=== PATIENT | male | born 1955 | race Caucasian/White ===

== ENCOUNTER 2018-03-17 16:08 | Inpatient (IN) | payer BC, OTHER, SELFPAY ==
--- NOTE | 2018-03-17 16:55 | PDOC.FPRHP ---
Addendum entered and electronically signed by Radha Ann DO 03/17/18 19 :58: Home medications: 1. Glipizide 10 mg qd 2. Lisinopril 10 mg qd 3. Pregabalin 150 mg TID 4. Simvastatin 40 mg qhs 5. Janumet 50-1000 mg BID 6. Tapentadol ER 100 mg BID 7. Tapentadol 50 QD Patient started on Zosyn Original Note: - History of Present Illness Chief Complaint: N/V History of Present Illness: 62 year old with PMH Type II DM that presents with sudden onset NBNB emesis since Monday. reports that he has been vomiting nearly every hour since that time. Patient following with outside wound care ([facility]) for right foot ulcer. He last saw her on Monday when symptoms first started. Patient was started on Bactrim for right foot ulcer at that time. He has been unable to tolerate anything by mouth since Monday, thus he has not been taking his medications. Patient states he is very thirsty and his throat hurts from all the vomiting. He has no other PMH. Patient denies chest pain, cough, congestion , shortness of breath, swelling. Patient was also prescribed zofran by wound care physician on Monday, but it has not been effective. Patient has not had any previous hospitalizations for DKA. ED Course: Started on insulin drip and given 4L in outside ED. - Allergies/Adverse Reactions Allergies Allergy/AdvReac Type Severity Reaction Status Date / Time No Known Drug Allergies Allergy Verified 03/17/18 16:43 - History PMHx: Type II DM PSHx: Tonsillectomy FHx: Non-contributory Social: Denies alcohol or drug use. Endorses past history of tobacco abuse, 1 PPD for 30 years; quit 10 years ago. Patient does continue to dip. - Review of Systems General: reports: weight/appetite/sleep changes, fatigue. denies: fever/chills Eyes: denies: vision changes ENT: denies: nasal congestion, rhinorrhea Respiratory: denies: cough, congestion, shortness of breath Cardiovascular: denies: chest pain, palpitation, edema Gastrointestinal: reports: nausea, vomiting. denies: diarrhea, constipation, abdominal pain, GI bleeding Genitourinary: denies: incontinence, dysuria, polyuria Skin: reports: lesions. denies: rashes Musculoskeletal: denies: pain, tenderness Neurological: reports: weakness. denies: numbness, syncope Psychological: denies: anxiety, depression - Vital signs BP: 154/94 HR: 108 RR: 19 Tmax: 97.9F Pox: 95% on RA Wt: 88.45 kg - Physical Exam -Constitutional: Appears weak and in moderate amount of distress HEENT: PERRLA, EOMI, grossly normal vision, grossly normal hearing -HEENT: Dry mucous membranes, erythematous oropharynx without exudates Neck: supple Heart: RRR, pulses present -Lungs: Rhonchi on right Abdomen: soft, non-tender, bowel sounds present Neurological: no focal deficit -Skin: Yellowing of the hands bilaterally, right DM foot ulcer on lateral aspect of foot. No purulent drainage. Surrounding erythema on right dorsal aspect of foot and ankle area. Heme/Lymphatic: no unusual bruising or bleeding FMR H&P: Results - Labs Result Diagrams: 03/17/18 16:55 FMR H&P: A/P - Problem List (1) DKA (diabetic ketoacidoses) Current Visit: Yes Status: Acute Code(s): E13.10 - OTH DIABETES MELLITUS WITH KETOACIDOSIS WITHOUT COMA (2) Type II diabetes mellitus Current Visit: Yes Status: Chronic Qualifiers: Diabetes mellitus complication status: with neurologic complications (3) Ulcer of right foot due to type 2 diabetes mellitus Current Visit: Yes Status: Acute Code(s): E11.621 - TYPE 2 DIABETES MELLITUS WITH FOOT ULCER; L97.519 - NON-PRS CHRONIC ULCER OTH PRT RIGHT FOOT W UNSP SEVERITY - Plan 62 year old with 3 day history of N/V presents from outside facility for management of DKA 1. DKA - Admit to IMCU - Type 2 DM, has never been in DKA before - Has been unable to tolerate PO d/t N/V since Monday - On glipizide and janumet at home - pH 7.25, beta hydroxybutyrate 6, Anion gap 23, HCO3 14 - Started on insulin drip at outside facility; continue insulin drip and DKA protocol - CCU electrolyte protocol - CXR negative, no acute cardiopulmonary process identified - UA negative - Patient s/p 4L NS in outside facility - Once anion gap closes and HCO3 is above 18, can transition patient off drip and to home medications; will need hyperglycemia protocol initiated at that time - Keep NPO until off insulin drip - Will xray right foot as possible cause of infection leading to DKA; blood and urine cultures pending - Consider repeat CXR in AM as patient was severely dehydrated at time of initial CXR; patient maintaining O2 sats on RA - Patient meets sepsis criteria (HR 108, WBC 20, presumed source of infection right foot ulcer) - Will order procal - Zofran for nausea; consider adding reglan or phenergan if zofran unsuccessful in controlling nausea/vomiting - BMP q4H while on insulin drip - Flu swab pending - Lipase very minimally elevated at 80 - TSH wnl 2. Sepsis possibly 2/2 right foot ulcer - Chronic right foot ulcer with overlying erythema; may be source of infection leading to DKA - Right foot xray pending to further evaluate - Procalcitonin pending - CXR neg; consider repeat in AM when patient is rehydrated - No other s/s infection at this time; continue to monitor 3. Type II DM - On glipizide and janumet at home - Continue LEXY-I, ASA, and Statin when tolerating PO 4. DM neuropathy - Continue home medications 5. Diabetic foot ulcer, Right - Possiblie source of infection - Xray of right foot pending - Procal pending - Blood cultures pending - Patient does not meet sepsis criteria at this time; we will not initiate antibiotics until further workup is complete - Patient follows closely with outside wound care and was last seen on Monday - Per , the wound is better than it has been previously; there is some overlying erythema for which the wound care physician gave him anti-fungal cream , presuming it was a fungal infection. 6. Acute kidney injury - BUN 91, Cr 3.25 on admission, GFR 24 - Patient severely dehydrated s/p 4 L NS and on fluids currently per DKA protocol - Q4h BMP while on insulin drip Disposition/LOS: Dispo: Stable. Admit to IMCU with anticipated LOS >48 hours. Radha Ann DO PGY-2 FMR H&P: Upper Level - Plan Date/Time: 03/17/18 2535 I, [], have evaluated this patient and agree with findings/plan as outlined by editing internship resident. Pertinent changes/additions are listed here. Addendum - Attending - Attending Attestation Date/Time: 03/17/18 489 I personally evaluated the patient and discussed the management with Dr. Ann. I agree with the History, Examination, Assessment and Plan documented above with any addition or exceptions noted below. The patient was transferred from [place] with DKA. The patient has a several day history of nausea and vomiting unable to keep his diabetic meds down. He has type 2 diabetes with peripheral neuropathy and a right diabetic foot ulcer that reportedly was getting smaller with outpt wound care. He was started on bactrim this past week but kept throwing it up. His wbc is elevated, beta- hydroxybutyrate was elevated. He will be placed on dka protocol. CXR shows nothing acute. Will get urine and blood cultures. WE ordered a foot xr. Read is pending but it looks like osteo of the 5th metatarsal by my read. Will begin broad spectrum antibiotics renally dosed. Pt has an acute kidney injury likely due to dehydration. He has received over 4 liters of fluid so far. Will get MRI of foot, crp.
[2018-03-17] MEDS ORDERED: HUMULIN R 100 UNITS in Sodium Chloride 0.9% 100 ML IVPB SCH ×2 (17:00→19:41)
[2018-03-17] MEDS ORDERED: NS 0.9% w/ 20 MEQ KCL 1,000 ML IV SCH (17:15)
[2018-03-17 17:32] LABS: Anion Gap 26 mmol/L (10-20); BUN (Urea Nitrogen) 73 mg/dL (8.4-25.7); Calc. Creatinine Clearance 0 mL/min (70-130); Calcium 9.7 mg/dL (7.8-10.44); Carbon Dioxide 13 mmol/L (22-29); Chloride 106 mmol/L (98-107); Estimated GFR-MDRD 25; Glucose 438 mg/dL (70-105); Potassium 3.9 mmol/L (3.5-5.1); Sodium 141 mmol/L (136-145)
[2018-03-17] MEDS ORDERED: Ondansetron PF 4 MG/2 ML Vial IVP PRN (19:41)
[2018-03-17] MEDS ORDERED: Ondansetron ODT 4 MG TAB PO PRN (19:41)
[2018-03-17] MEDS ORDERED: CCU Electrolyte Replacement 1 EACH IVPB SCH (19:41)
[2018-03-17] MEDS ORDERED: NS 0.9% w/ 20 MEQ KCL 1,000 ML IV PRN ×2 (19:41)
[2018-03-17] MEDS ORDERED: Bisacodyl 5 MG TAB PO PRN (19:41)
[2018-03-17] MEDS ORDERED: Sodium Chloride 0.9% 1,000 ML IV PRN ×4 (19:41)
[2018-03-17] MEDS ORDERED: Dextrose 5 %-0.45 % NaCl 1,000 ML IV PRN (19:41)
[2018-03-17] MEDS ORDERED: Acetaminophen 325 MG TAB PO PRN (19:41)
[2018-03-17] MEDS ORDERED: Potassium Chloride 40 MEQ in Premix Bag 1 BAG IVPB PRN (19:45)
[2018-03-17] MEDS ORDERED: Potassium Phosphate 9 MMOL in Sodium Chloride 0.9% 100 ML IVPB PRN (19:45)
[2018-03-17] MEDS ORDERED: Magnesium 2 GM/NS 0.9% 100 ML 2 GM in Premix Bag 1 BAG IVPB PRN (19:45)
[2018-03-17] MEDS ORDERED: Potassium Phosphate 15 MMOL in Sodium Chloride 0.9% 250 ML 250 ML IV PRN (19:45)
[2018-03-17] MEDS ORDERED: Potassium Chloride 20 MEQ TAB PO PRN (19:45)
[2018-03-17] MEDS ORDERED: Magnesium Oxide 400 MG TAB PO PRN ×2 (19:45)
[2018-03-17] MEDS ORDERED: Potassium Phosphate 12 MMOL in Sodium Chloride 0.9% 250 ML 250 ML IV PRN (19:45)
[2018-03-17] MEDS ORDERED: Potassium Chloride 40 MEQ in Sodium Chloride 0.9% 250 ML 250 ML IVPB PRN (19:45)
[2018-03-17] MEDS ORDERED: CCU ELECTROLYTE REPLACEMENT PROTOCOL FS PRN (19:45)
--- NOTE | 2018-03-17 20:17 | RAD ---
RIGHT FOOT THREE VIEWS: 03/17/18 HISTORY: 62-year-old male with history of right foot pain and right foot ulcer. There is a large area of bone destruction involving the distal fifth metatarsal and metatarsal head w ith some considerable periosteal reaction. As well as destruction of the fifth metatarsophalangeal olivier int and proximal portion of the proximal phalanx with bone demineralization in the mid and distal pha langes of the fifth finger with soft tissue swelling. There is a plantar ulcer. IMPRESSION: Evidence for osteomyelitis involving the distal fifth metatarsal with destruction of the metatarsal h ead, metatarsophalangeal joint, and base of the proximal phalanx with associated soft tissue swelling and plantar ulcer. Bone demineralization of the middle and distal phalanges of the fifth toe. Arthrosis and degenerative changes noted, particularly the first metatarsophalangeal joint. POS: DONOVAN
[2018-03-17 20:18] LABS: Cardiac Risk 3.2 (Less than 4.5); Cholesterol 147 mg/dl (< 200 Desired); HDL Cholesterol 46 mg/dL (>60 Neg Risk); LDL Cholesterol, Calculated 49 mg/dL; Magnesium 2.5 mg/dL (1.6-2.6); Phosphorus 3.3 mg/dL (2.3-4.7); Triglycerides 260 mg/dL (Less than 150)
[2018-03-17 20:22] LABS: Hemoglobin A1c 8.4 % (4.0-6.0)
[2018-03-17] MEDS: D5 1/2 NS w/20 mEq KCL 1,000 ML IV PRN (20:27)
[2018-03-17 20:34] LABS: Anion Gap 27 mmol/L (10-20); BUN (Urea Nitrogen) 66 mg/dL (8.4-25.7); Calc. Creatinine Clearance 38 mL/min (70-130); Calcium 9.4 mg/dL (7.8-10.44); Chloride 109 mmol/L (98-107); Estimated GFR-MDRD 28; Glucose 380 mg/dL (70-105); Potassium 4.4 mmol/L (3.5-5.1); Sodium 140 mmol/L (136-145)
[2018-03-17 20:37] LABS: Carbon Dioxide 8 mmol/L (22-29)
[2018-03-17] MEDS ORDERED: Vancomycin HCl 1.25 GM in Sodium Chloride 0.9% 250 ML 300 ML IVPB SCH (21:00)
[2018-03-17 21:21] LABS: Bilirubin Moderate (Negative); Blood, Urine Moderate (Negative); Clarity CLEAR (Clear); Glucose, Urine (Dipstick) >=1000 mg/dL (Negative); Leukocyte Negative (Negative); Nitrite Negative (Negative); Protein, Urine (Dipstick) 30 mg/dL (Neg-Trace); Specific Gravity, Urine 1.025 (1.002-1.036); Urobilinogen 0.2 mg/dL (0.2-1.0); pH, Urine 5.5 (5.0-9.0)
[2018-03-17 21:23] LABS: Bacteria/HPF None Seen HPF (None Seen); Hyaline Casts/LPF 0-3 HYALINE CAST LPF (0-3 Hyaline); RBC/HPF 0-3 HPF (0-3); Squamous Epithelial None Seen HPF (0-3); WBC/HPF None Seen HPF (0-3)
[2018-03-17] MEDS ORDERED: Ondansetron ODT 4 MG TAB PO ONE (23:36)
[2018-03-18] MEDS: Piperacillin/Tazobactam 2.25 GM in Sodium Chloride 0.9% 100 ML IVPB SCH ×4 (00:01→17:37)
[2018-03-18] MEDS: D5 1/2 NS w/20 mEq KCL 1,000 ML IV PRN (00:13)
[2018-03-18 00:32] LABS: Anion Gap 19 mmol/L (10-20); BUN (Urea Nitrogen) 61 mg/dL (8.4-25.7); Calc. Creatinine Clearance 42 mL/min (70-130); Calcium 9.6 mg/dL (7.8-10.44); Carbon Dioxide 18 mmol/L (22-29); Chloride 115 mmol/L (98-107); Estimated GFR-MDRD 31; Glucose 209 mg/dL (70-105); Potassium 3.9 mmol/L (3.5-5.1); Sodium 148 mmol/L (136-145)
[2018-03-18 04:09] LABS: Anion Gap 14 mmol/L (10-20); BUN (Urea Nitrogen) 53 mg/dL (8.4-25.7); Calc. Creatinine Clearance 49 mL/min (70-130); Calcium 9.3 mg/dL (7.8-10.44); Carbon Dioxide 22 mmol/L (22-29); Chloride 115 mmol/L (98-107); Estimated GFR-MDRD 37; Glucose 195 mg/dL (70-105); Potassium 4.2 mmol/L (3.5-5.1); Sodium 147 mmol/L (136-145)
[2018-03-18] MEDS ORDERED: Promethazine 25 MG TAB PO PRN (05:25)
[2018-03-18] MEDS ORDERED: Dextrose 50% Abboject 50 ML SYRINGE SLOW IVP PRN (05:28)
[2018-03-18] MEDS ORDERED: Dextrose 5% in Water 1,000 ML IV PRN (05:28)
[2018-03-18] MEDS ORDERED: Sodium Chloride 0.9% 1,000 ML IV SCH (05:30)
[2018-03-18] MEDS ORDERED: Insulin Glargine 15 UNITS in Pre-Filled Syringe SC SCH (05:30)
--- NOTE | 2018-03-18 06:48 | PDOC.FM ---
- Subjective Subjective: Denies nausea/vomiting today. Endorses mild pain to right foot. Endorses acid reflux. States he usually takes prilosec at home. - Objective MAR Reviewed: Yes Vital Signs & Weight: Vital Signs (12 hours) Temp Pulse Resp BP Pulse Ox 03/18/18 04:15 98.9 F 95 19 152/88 H 94 L 03/17/18 23:41 98.4 F 106 H 19 169/96 H 95 03/17/18 20:00 95 03/17/18 19:17 98.6 F 112 H 18 147/81 H 95 Weight Weight 82.146 kg Result Diagrams: 03/18/18 03:43 03/18/18 03:43 Phys Exam - Physical Examination Constitutional: NAD HEENT: PERRLA, moist MMs Respiratory: no wheezing, no rales, no rhonchi, clear to auscultation bilateral Cardiovascular: RRR, no significant murmur Gastrointestinal: soft, non-tender, no distention Musculoskeletal: no edema, pulses present Neurological: non-focal Psychiatric: A&O x 3 Skin: no rash, cap refill <2 seconds Dx/Plan (1) Osteomyelitis Code(s): M86.9 - OSTEOMYELITIS, UNSPECIFIED Status: Acute (2) DKA (diabetic ketoacidoses) Code(s): E13.10 - OTH DIABETES MELLITUS WITH KETOACIDOSIS WITHOUT COMA Status : Acute (3) Ulcer of right foot due to type 2 diabetes mellitus Code(s): E11.621 - TYPE 2 DIABETES MELLITUS WITH FOOT ULCER; L97.519 - NON-PRS CHRONIC ULCER OTH PRT RIGHT FOOT W UNSP SEVERITY Status: Acute (4) Type II diabetes mellitus Status: Chronic Qualifiers: Diabetes mellitus complication status: with neurologic complications - Plan Plan: 62 year old with 3 day history of N/V presents from outside facility for management of DKA 1. DKA - On glipizide and janumet at home - pH 7.25, beta hydroxybutyrate 6, Anion gap 23, HCO3 14 - Started on insulin drip at outside facility; weaned off this morning as GAP closed and bicarb >18 - CCU electrolyte protocol - Zofran for nausea; consider adding reglan or phenergan if zofran unsuccessful in controlling nausea/vomiting - BMP qAM - started on LR @ 125 ml/hr for bayron and dehydration 2. Sepsis possibly 2/2 right foot ulcer - Chronic right foot ulcer with overlying erythema; may be source of infection leading to DKA - Right foot xray shows osteomyelitis - Procalcitonin pending - No other s/s infection at this time; continue to monito - started on vanc and zosyn renally dosed 3. Type II DM - On glipizide and janumet at home - restarted radha this am; increased statin to high intensity - will start baby aspirin 4. DM neuropathy - Continue home medications 5. Diabetic foot ulcer, Right - Possiblie source of infection - Xray of right foot shows osteo - Procal pending - Blood cultures pending - started on vanc and zosyn renally dosed - will consult surgery 6. Acute kidney injury - Prerenal - Patient severely dehydrated s/p 4 L NS - started LR @ 125 ml/hr for maintenanc Dispo: Stable. Code: Full Diet: diabetic Addendum - Attending - Attending Attestation Date/Time: 03/18/18 1220 I personally evaluated the patient and discussed the management with Dr. Olivares. I agree with the History, Examination, Assessment and Plan documented above with any addition or exceptions noted below. Pt is off insulin drip and was transitioned to basal insulin. WBC improved from 20 at outside facility to 16 today. Continue broad-spectrum IV antibiotics. Consult surgery/podiatry for the osteo in the foot. Will continue IV fluids to help with bayron and sodium.
[2018-03-18] MEDS ORDERED: Calcium Carbonate 500 MG ChewTAB PO PRN (07:58)
[2018-03-18] MEDS: Pregabalin 75 MG CAP PO SCH ×3 (08:01→20:29)
[2018-03-18] MEDS: Lisinopril 10 MG TAB PO SCH (08:02)
[2018-03-18] MEDS: Lactated Ringer's 1,000 ML IV SCH ×2 (08:03→15:16)
[2018-03-18 09:23] LABS: Band 6 % (5-11); Lymphocytes 4 % (21-51); MDiff Complete? YES; Mean Corpuscular HGB CONC 33.5 g/dL (32.0-36.0); Mean Corpuscular Hemoglobin 28.3 pg (27.0-31.0); Mean Corpuscular Volume 84.5 fL (78.0-98.0); Mean Platelet Volume 7.2 fL (7.4-10.4); Monocytes 16 % (0-10); Neutrophil 66 % (42-75); Platelet Count 321 thou/uL (130-400); Platelet Morphology Comment Appears Adequate; Reactive Lymphocytes 8 % (0-10); Red Blood Cell (RBC) Count 5.32 mill/uL (4.70-6.10)
[2018-03-18] MEDS: Insulin Regular 300 UNITS/3 ML VIAL SC PRN ×3 (11:37→22:08)
[2018-03-18] MEDS: Atorvastatin Calcium 40 MG TAB PO SCH (20:29)
[2018-03-18] MEDS ORDERED: Vancomycin HCl 1.25 GM in Sodium Chloride 0.9% 250 ML 250 ML IVPB SCH (21:00)
[2018-03-18] MEDS ORDERED: Acetaminophen 650 MG in Premix Bag 1 BAG IVPB PRN (21:11)
[2018-03-19] MEDS: Piperacillin/Tazobactam 2.25 GM in Sodium Chloride 0.9% 100 ML IVPB SCH ×3 (00:56→12:14)
[2018-03-19] MEDS: Lactated Ringer's 1,000 ML IV SCH ×3 (02:00→15:23)
[2018-03-19 05:30] LABS: Anion Gap 19 mmol/L (10-20); BUN (Urea Nitrogen) 35 mg/dL (8.4-25.7); Calc. Creatinine Clearance 61 mL/min (70-130); Calcium 9.6 mg/dL (7.8-10.44); Carbon Dioxide 15 mmol/L (22-29); Chloride 121 mmol/L (98-107); Estimated GFR-MDRD 47; Glucose 276 mg/dL (70-105); Potassium 4.2 mmol/L (3.5-5.1); Sodium 151 mmol/L (136-145)
[2018-03-19] MEDS: Insulin Regular 300 UNITS/3 ML VIAL SC PRN ×3 (06:20→22:21)
--- NOTE | 2018-03-19 06:51 | PDOC.FM ---
- Subjective Subjective: Pt complaining of severe thirst. He failed bedside swallow and speech eval and is currently NPO. Overnight his AG remained closed but this morning it is increasing. He denies abd pain, n/v/c/d, CP, WEEMS, vision changes. - Objective MAR Reviewed: Yes Vital Signs & Weight: Vital Signs (12 hours) Temp Pulse Resp BP Pulse Ox 03/19/18 04:35 99.3 F 89 18 146/82 H 94 L 03/19/18 00:00 99.4 F 94 20 132/63 94 L 03/18/18 20:30 100.3 F H 105 H 20 131/73 91 L Weight Weight 84.085 kg I&O: 03/17/18 03/18/18 03/19/18 06:59 06:59 06:59 Intake Total 2805 2000 Output Total 1300 2250 Balance 1505 -250 Result Diagrams: 03/18/18 03:43 03/19/18 10:28 Radiology Reviewed by me: Yes Phys Exam - Physical Examination Constitutional: NAD dry MM, erythematous oropharynx Respiratory: no wheezing, no rales, clear to auscultation bilateral Cardiovascular: RRR, no significant murmur Gastrointestinal: soft, non-tender, no distention Musculoskeletal: no edema, pulses present Neurological: non-focal, normal sensation Psychiatric: normal affect, A&O x 3 Skin: cap refill <2 seconds Deviation from normal: R foot ulcer with dressing in place Dx/Plan (1) DKA (diabetic ketoacidoses) Code(s): E13.10 - OTH DIABETES MELLITUS WITH KETOACIDOSIS WITHOUT COMA Status : Acute (2) Osteomyelitis Code(s): M86.9 - OSTEOMYELITIS, UNSPECIFIED Status: Acute (3) Ulcer of right foot due to type 2 diabetes mellitus Code(s): E11.621 - TYPE 2 DIABETES MELLITUS WITH FOOT ULCER; L97.519 - NON-PRS CHRONIC ULCER OTH PRT RIGHT FOOT W UNSP SEVERITY Status: Acute (4) Type II diabetes mellitus Status: Chronic Qualifiers: Diabetes mellitus complication status: with neurologic complications - Plan Plan: DKA - On glipizide and janumet at home, compliant, A1c 8.5 - pH 7.25, beta hydroxybutyrate 6, Anion gap 23, HCO3 14 on presentation - Started on insulin drip at outside facility; weaned off yesterday, AG increasing, today 14 with pronounced hypernatremic metabolic acidosis likely 2/ 2 NS IVF vs reoccuring DKA, BMP in 4h and increase SSI to aggressive and Lantus to 25u this am - CCU electrolyte protocol - Zofran for nausea; consider adding reglan or phenergan if zofran unsuccessful in controlling nausea/vomiting - BMP qAM - switch IVF to 1/2NS at 150 Sepsis likely 2/2 right foot ulcer and osteomyelitis - Chronic right foot ulcer with overlying erythema; likely source of infection leading to DKA - Right foot xray shows osteomyelitis - started on vanc and zosyn - consult Gen Surgery and ID - BCx NGTD Dysphagia - productive cough on exam with recent hx of sore throat - speech consulted for swallow eval - NPO until cleared Type II DM - On glipizide and janumet at home - restarted radha this am; increased statin to high intensity - will start baby aspirin DM neuropathy - Continue home medications KAIN - Prerenal - Patient severely dehydrated s/p 4 L NS and LR overnight - change IVF to 1/2NS at 150 Dispo: Stable. Code: Full Diet: NPO
[2018-03-19] MEDS ORDERED: Insulin Regular 300 UNITS/3 ML VIAL SC PRN (06:56)
[2018-03-19] MEDS ORDERED: Insulin Glargine 25 UNITS in Pre-Filled Syringe 1 EACH SC SCH (09:00)
[2018-03-19] MEDS ORDERED: Dextrose 5 %-0.45 % NaCl 1,000 ML IV SCH (10:30)
[2018-03-19 11:08] LABS: Anion Gap 21 mmol/L (10-20); BUN (Urea Nitrogen) 31 mg/dL (8.4-25.7); Calc. Creatinine Clearance 66 mL/min (70-130); Calcium 9.6 mg/dL (7.8-10.44); Carbon Dioxide 12 mmol/L (22-29); Chloride 124 mmol/L (98-107); Estimated GFR-MDRD 51; Glucose 271 mg/dL (70-105); Potassium 4.2 mmol/L (3.5-5.1); Sodium 153 mmol/L (136-145)
[2018-03-19] MEDS: Sodium Chloride 0.45% 1,000 ML IV SCH ×2 (12:16→21:25)
[2018-03-19] MEDS: Pregabalin 75 MG CAP PO SCH ×3 (12:49→22:07)
[2018-03-19] MEDS: Lisinopril 10 MG TAB PO SCH (12:49)
[2018-03-19 13:38] LABS: Anion Gap 19 mmol/L (10-20); BUN (Urea Nitrogen) 30 mg/dL (8.4-25.7); Calc. Creatinine Clearance 66 mL/min (70-130); Calcium 9.6 mg/dL (7.8-10.44); Carbon Dioxide 16 mmol/L (22-29); Chloride 123 mmol/L (98-107); Estimated GFR-MDRD 51; Glucose 272 mg/dL (70-105); Potassium 4.1 mmol/L (3.5-5.1); Sodium 154 mmol/L (136-145)
--- NOTE | 2018-03-19 14:51 | CON ---
DATE OF CONSULTATION: REASON FOR CONSULTATION: Osteomyelitis, right foot. HISTORY OF PRESENT ILLNESS: A 62-year-old patient, who has history of type 2 and now type 1 diabetes mellitus and has had chronic problems with the right foot ulcerations with waxing and waning of ulcers healing and recrudescence that have been treated with antimicrobials intermittently. Now, he developed sore throat, vomiting, was seen in emergency room and diagnosed with DKA and admitted to the [facility]. He is currently on IV insulin and IV fluids. He denies any headaches, visual symptoms, sore throat, odynophagia, or dysphagia. No cough or sputum production. No chest pain. No abdominal pain or maybe mild abdominal pain. No diarrhea. No genitourinary symptoms. Moderate pain in the right foot. PAST MEDICAL HISTORY: Type 2 diabetes, now type 1 and chronic ulcer right foot base. PAST SURGICAL HISTORY: Tonsillectomy. SOCIAL HISTORY: Former smoker. No alcoholic beverage use. FAMILY HISTORY: Noncontributory. ALLERGIES: NO KNOWN DRUG ALLERGIES. CURRENT MEDICATIONS: 1. P.r.n. medications. 2. Lipitor. 3. Dulcolax. 4. Tums. 5. Insulin. 6. Lisinopril. 7. Magnesium. 8. Ondansetron. 9. Zosyn. 10. Vancomycin. PHYSICAL EXAMINATION: VITAL SIGNS: T-max 100.3, blood pressure 150/88, pulse 95, respirations 18, and O2 saturation 93% on room air. SKIN: Remarkable for the ulcer quite small with surrounding area of hyperpigmentation and scab formation and erythema further around the ulcerated area encompassing the fifth MPJ, right foot skin site. HEENT: No lymphadenopathy. Ocular movements conjugate. Oral cavity is not remarkable. He does have a few teeth in place with quite a bit of decay. NECK: Supple. No jugular venous distention. LUNGS: Symmetric clear breath sounds. HEART: S1 and S2. Regular rate without murmurs. No S3 or S4. ABDOMEN: Soft, not distended or tender. No ascites. No bladder distention. EXTREMITIES: No joint inflammatory activity. Pulses 1+ in dorsalis pedis. Cap refill is normal. NEUROLOGIC: Nonfocal. LABORATORY DATA: White cell count 16,000, hemoglobin 15, platelets 321. Sodium 153, creatinine 1.41, and liver profile was not done. CRP 12.05. X-ray showed extensive osteomyelitis with septic arthritis, destruction of the joint, right side fifth MPJ site. ASSESSMENT: Type 2 diabetes, now type 1 with destruction of the right fifth metatarsal joint and bone due to osteomyelitis associated with chronic ulceration. The patient will need amputation of the ray and we will consult Surgery of Podiatry for that. Continue antimicrobial therapy until cultures are available. If margin of amputation is clear, may be able to switch to oral antimicrobial therapy according to culture results for discharge planning, otherwise may need to continue iv antimicrobials for a longer duration. Continue monitoring blood cultures at this time. No distant sites of involvement are noted. Job ID: [id number] [facility]
[2018-03-19] MEDS ORDERED: diphenhydrAMINE 50 MG/ML VIAL IVP PRN (19:23)
--- NOTE | 2018-03-19 20:11 | RAD ---
CHEST TWO VIEWS: HISTORY: Hematemesis. FINDINGS: The cardiac silhouette and pulmonary vasculature are unremarkable. Shallow inspiration accentuates p ulmonary markings. Mediastinum is midline. No confluent air space consolidation, pneumothorax, or p leural fluid. engine monitor leads overly the chest. IMPRESSION: No active cardiopulmonary abnormalities are demonstrated. POS: BST
[2018-03-19 20:13] LABS: #Basophils 0.1 thou/uL (0.0-0.2); #Lymphocytes 1.5 thou/uL (1.20-3.40); #Monocytes 1.5 thou/uL (0.11-0.59); #Neutrophils 11.2 thou/uL (1.40-6.50); %Basophils 0.4 % (0.0-1.0); %Eosinophils 0.1 % (0.0-10.0); %Lymphocytes 10.8 % (21.0-51.0); %Monocytes 10.2 % (0.0-10.0); %Neutrophils 78.5 % (42.0-75.0); Hemoglobin 13.5 g/dL (14.0-18.0); Mean Corpuscular HGB CONC 32.3 g/dL (32.0-36.0); Mean Corpuscular Hemoglobin 28.3 pg (27.0-31.0); Mean Corpuscular Volume 87.5 fL (78.0-98.0); Platelet Count 288 thou/uL (130-400); RBC Distribution Width 13.1 % (11.5-14.5); Red Blood Cell (RBC) Count 4.79 mill/uL (4.70-6.10); White Blood Cell (WBC) Count 14.2 thou/uL (4.8-10.8)
[2018-03-19 20:35] LABS: Anion Gap 23 mmol/L (10-20); BUN (Urea Nitrogen) 30 mg/dL (8.4-25.7); Calc. Creatinine Clearance 63 mL/min (70-130); Calcium 9.8 mg/dL (7.8-10.44); Carbon Dioxide 13 mmol/L (22-29); Chloride 121 mmol/L (98-107); Estimated GFR-MDRD 48; Glucose 299 mg/dL (70-105); Potassium 4.3 mmol/L (3.5-5.1); Sodium 153 mmol/L (136-145)
[2018-03-19] MEDS ORDERED: Vancomycin HCl 1 GM in Premix Bag 1 BAG IVPB SCH (21:15)
[2018-03-19] MEDS: diphenhydrAMINE 50 MG/ML VIAL IVP PRN (21:17)
[2018-03-19] MEDS: Atorvastatin Calcium 40 MG TAB PO SCH (22:07)
[2018-03-20 00:34] LABS: Anion Gap 19 mmol/L (10-20); BUN (Urea Nitrogen) 32 mg/dL (8.4-25.7); Calc. Creatinine Clearance 65 mL/min (70-130); Calcium 9.5 mg/dL (7.8-10.44); Carbon Dioxide 14 mmol/L (22-29); Chloride 122 mmol/L (98-107); Estimated GFR-MDRD 50; Glucose 297 mg/dL (70-105); Potassium 3.9 mmol/L (3.5-5.1); Sodium 151 mmol/L (136-145)
[2018-03-20] MEDS: metroNIDAZOLE 500 MG in Premix Bag 1 BAG IVPB SCH ×2 (00:43→07:11)
--- NOTE | 2018-03-20 01:42 | HP ---
HISTORY OF PRESENT ILLNESS: Jonah Salazar is a 62-year-old male from [place], who has been seeing a wound care physician in [place] for right foot diabetic ulcer. The patient is admitted on this occasion with DKA and noting to have a diabetic foot ulcer with communication to the bone. He has type 2 diabetes mellitus. I have been asked to see him regarding his foot wound. The patient clearly has not been taking his medication, has been very thirsty and sick for several days. On admission, his white count was 16, hemoglobin 15. Glucose on admission was 386. Hemoglobin A1c 8.4. CO2 was 8 on admission and is 16 currently. X-rays of his right foot reveal osteomyelitis of his right fifth toe with gas in the open wound. Probing wound reveals communication with the bone. Findings of osteomyelitis with MTP head eaten away. ALLERGIES: NONE. SOCIAL HISTORY: Tobacco, none. Alcohol, none. MEDICATIONS: He has not been taking his medications at home but at home, he is usually on: 1. Nucynta 50 mg t.i.d. 2. Janumet b.i.d. 3. Nucynta ER 100 mg daily. 4. Farxiga 10 mg in a.m. 5. Zocor 40 mg at bedtime. 6. Lyrica 150 mg t.i.d. 7. Glipizide 10 mg b.i.d. 8. Lisinopril 10 mg a day. PAST MEDICAL HISTORY: Diabetes mellitus, hypertension. PAST SURGICAL HISTORY: Tonsillectomy. Past history of tobacco abuse, cessation 10 years ago. PHYSICAL EXAMINATION: VITAL SIGNS: 6 foot, 185 pounds, 25 BMI, 99.4, 158/88, 18. HEAD, EARS, EYES, NOSE, AND THROAT: Unremarkable. LUNGS: Clear to auscultation. CARDIAC: Regular rate and rhythm without murmur or gallop. ABDOMEN: Soft and nontender. Palpable femoral, popliteal, dorsalis pedis, posterior tibial pulses. EXTREMITIES: Right foot lateral fifth metatarsal is an open wound that communicates to the bone on probing. There is cellulitis of the foot. LABORATORY DATA: BUN 30. Creatinine 1.41, improved from admission where his creatinine was 2.63. Hemoglobin 16 on admission, 03/18, not checked since. ASSESSMENT AND PLAN: 1. Diabetic ketoacidosis, treatment per Family Practice. 2. Diabetic foot infection, right. We would recommend methicillin-resistant Staphylococcus aureus and gram-negative coverage. Currently on vancomycin, but did experience a rash, which has been evaluated. He is also on Zosyn. If his vancomycin is discontinued, we could change him to Invanz. 3. Acute kidney injury. 4. Diabetic foot infection. Would recommend amputation of right fifth toe and metatarsal. Would arrange wound VAC care. Outpatient wound care can be provided by his wound care doctor in [place], who is close to his home. Job ID: [id number]
[2018-03-20] MEDS: Piperacillin/Tazobactam 2.25 GM in Sodium Chloride 0.9% 100 ML IVPB SCH (03:31)
[2018-03-20 05:50] LABS: Anion Gap 16 mmol/L (10-20); BUN (Urea Nitrogen) 29 mg/dL (8.4-25.7); Calc. Creatinine Clearance 73 mL/min (70-130); Calcium 9.5 mg/dL (7.8-10.44); Carbon Dioxide 18 mmol/L (22-29); Chloride 122 mmol/L (98-107); Estimated GFR-MDRD 57; Glucose 181 mg/dL (70-105); Potassium 3.8 mmol/L (3.5-5.1); Sodium 152 mmol/L (136-145)
[2018-03-20] MEDS: diphenhydrAMINE 50 MG/ML VIAL IVP PRN (05:58)
[2018-03-20] MEDS: Sodium Chloride 0.45% 1,000 ML IV SCH ×3 (05:58→20:46)
[2018-03-20] MEDS ORDERED: MEROPENEM 1 GM/50 ML 1 GM in Premix Bag 1 BAG IVPB SCH (06:45)
[2018-03-20] MEDS ORDERED: Promethazine HCl 25 MG/ML VIAL IM/IV PRN (06:53)
--- NOTE | 2018-03-20 06:53 | PDOC.FM ---
- Subjective Subjective: Pt is doing better this morning but still complains of thirst and dry mouth. Had one episode of hemoptysis overnight and complained of rash on abdomen. Night team dc'd jarvis and zosyn at that time and rash is improved. He has not had any other episodes of hemoptysis or vomiting since that one episode. He denies abd pain, n/v/c/d, WEEMS this AM. - Objective MAR Reviewed: Yes Vital Signs & Weight: Vital Signs (12 hours) Temp Pulse Resp BP Pulse Ox 03/20/18 04:00 99.3 F 93 20 150/74 H 95 03/20/18 02:28 97 03/20/18 00:00 99.2 F 94 18 147/90 H 97 03/19/18 19:52 99.2 F 94 18 137/66 98 Weight Admit Weight 82.146 kg Weight 84.085 kg I&O: 03/18/18 03/19/18 03/20/18 06:59 06:59 06:59 Intake Total 2805 2000 Output Total 1300 2250 Balance 1505 -250 Result Diagrams: 03/20/18 07:28 03/20/18 04:52 Phys Exam - Physical Examination Constitutional: NAD dry MM, improved from yesterday Respiratory: no wheezing, no rales, clear to auscultation bilateral Cardiovascular: RRR, no significant murmur Gastrointestinal: soft, non-tender Musculoskeletal: no edema, pulses present Neurological: non-focal, normal sensation, moves all 4 limbs Psychiatric: normal affect, A&O x 3 Dx/Plan (1) DKA (diabetic ketoacidoses) Code(s): E13.10 - OTH DIABETES MELLITUS WITH KETOACIDOSIS WITHOUT COMA Status : Acute (2) Osteomyelitis Code(s): M86.9 - OSTEOMYELITIS, UNSPECIFIED Status: Acute (3) Ulcer of right foot due to type 2 diabetes mellitus Code(s): E11.621 - TYPE 2 DIABETES MELLITUS WITH FOOT ULCER; L97.519 - NON-PRS CHRONIC ULCER OTH PRT RIGHT FOOT W UNSP SEVERITY Status: Acute (4) Type II diabetes mellitus Status: Chronic Qualifiers: Diabetes mellitus complication status: with neurologic complications - Plan Plan: DKA - On glipizide and janumet at home, compliant, A1c 8.5 - pH 7.25, beta hydroxybutyrate 6, Anion gap 23, HCO3 14 on presentation - Started on insulin drip at outside facility; weaned off yesterday, AG closed with pronounced hypernatremic metabolic acidosis likely 2/2 NS IVF, continue SSI to aggressive and Lantus to 30u this am - CCU electrolyte protocol - BMP in AM - continue IVF to 1/2NS at 150 Sepsis likely 2/2 right diabetic foot ulcer and osteomyelitis - Chronic right foot ulcer with overlying erythema; likely source of infection leading to DKA - Right foot xray shows osteomyelitis - Vanc and zosyn dc'd as below, merem and cipro currently, await bone cx - consult Gen Surgery and ID, appreciate recs - plans for surgical amputation of fifth digit and metatarsal by Dr. Major - BCx NGTD Hemoptysis - belkis sanchez vs stomach ulcer - IV protonix BID, give IV phenergan Rash - developed overnight, discontinued Vanc and Zosyn - today switched to merem and cipro for double pseudomonos coverage, G+, and anaerobic coverage, await bone cx Dysphagia - productive cough on exam with recent hx of sore throat - speech consulted for swallow eval, failed yesterday- okay for ice chips per speech but continues to have difficulty overnight. - NPO for surgery today. Type II DM - On glipizide and janumet at home - restarted radha this am; increased statin to high intensity - will start baby aspirin DM neuropathy - Continue home medications KAIN - Prerenal, improving - Patient severely dehydrated s/p 4 L NS and LR over one night - continue IVF to 1/2NS at 150 Dispo: Stable. Code: Full Diet: NPO
[2018-03-20 07:42] LABS: #Eosinphils 0.1 thou/uL (0.0-0.7); #Lymphocytes 1.6 thou/uL (1.20-3.40); #Monocytes 1.4 thou/uL (0.11-0.59); #Neutrophils 10.1 thou/uL (1.40-6.50); %Eosinophils 0.4 % (0.0-10.0); %Lymphocytes 12.4 % (21.0-51.0); %Monocytes 10.3 % (0.0-10.0); %Neutrophils 76.8 % (42.0-75.0); Hemoglobin 12.5 g/dL (14.0-18.0); Mean Corpuscular HGB CONC 31.8 g/dL (32.0-36.0); Mean Corpuscular Hemoglobin 27.6 pg (27.0-31.0); Mean Corpuscular Volume 86.8 fL (78.0-98.0); Mean Platelet Volume 6.9 fL (7.4-10.4); Platelet Count 263 thou/uL (130-400); RBC Distribution Width 13.1 % (11.5-14.5); Red Blood Cell (RBC) Count 4.52 mill/uL (4.70-6.10); White Blood Cell (WBC) Count 13.1 thou/uL (4.8-10.8)
[2018-03-20 07:47] LABS: INR-International Normal Ratio 1.1; PTT 33.6 SEC (22.9-36.1); Prothrombin Time 14.6 SEC (12.0-14.7)
[2018-03-20] MEDS: Pantoprazole 40 MG VIAL IVP SCH ×2 (07:55→20:46)
[2018-03-20] MEDS: Lisinopril 10 MG TAB PO SCH (07:56)
[2018-03-20] MEDS: Pregabalin 75 MG CAP PO SCH ×3 (07:56→20:48)
[2018-03-20] MEDS ORDERED: Vancomycin HCl 1 GM in Premix Bag 1 BAG IVPB SCH (09:00)
[2018-03-20] MEDS ORDERED: Insulin Glargine 30 UNITS in Pre-Filled Syringe 1 EACH SC SCH (09:00)
--- NOTE | 2018-03-20 09:19 | PRG ---
DATE OF SERVICE: 03/19/2018 ADDENDUM: This is an addendum to the note of Dr. Jackie Machuca. Mr. Salazar is a 62-year-old man who was admitted in DKA likely secondary to a right 5th metatarsal osteomyelitis. This has resolved, but he now demonstrates evidence of hyperchloremic metabolic acidosis. I would suggest switching him to have normal saline to reduce his chloride load and to reduce his sodium gradually over the next day or two. We will also consult Dr. Bah regarding his likely osteomyelitis of his right 5th metatarsal. We have restarted broad-spectrum antibiotics. Job ID: [id number]
[2018-03-20] MEDS ORDERED: Midazolam HCl 2 mg/2 ml Vial ONE (10:38)
[2018-03-20] MEDS ORDERED: Fentanyl 100 MCG/2 ML VIAL ONE (10:38)
[2018-03-20] MEDS ORDERED: HYDROmorphone 2 MG/ML VIAL ONE (11:20)
[2018-03-20] MEDS ORDERED: KETAMINE 100 MG/ML (5ML VIAL) ONE (11:20)
--- NOTE | 2018-03-20 12:11 | PRG ---
DATE OF SERVICE: 03/20/2018 ADDENDUM: This is an addendum to the note of Dr. Jackie Machuca. Mr. Salazar slipped back into mild DKA yesterday. He also has hyperchloremic metabolic acidosis and we are adjusting his IV fluids to manage these issues. He has been seen by the Surgery Service and will be taken later today for a toe amputation. He allegedly developed a rash with vancomycin, although, it is not particularly itchy and was not associated with any changes in blood pressure or wheezing. We may later switch to meropenem to continue MRSA coverage. We will continue to follow with Dr. Bah and the Surgical Service. Job ID: [id number]
[2018-03-20] MEDS ORDERED: SUGAMMADEX SODIUM 200 MG/2 ML VIAL ONE (12:36)
[2018-03-20] MEDS ORDERED: SUGAMMADEX SODIUM 500 MG/5 ML VIAL ONE (12:36)
[2018-03-20] MEDS ORDERED: Acetaminophen 500 MG TAB PO PRN (12:45)
[2018-03-20] MEDS ORDERED: traMADol HCl 50 MG TAB PO PRN ×2 (12:45)
[2018-03-20] MEDS: MEROPENEM 1 GM/50 ML 1 GM in Premix Bag 1 BAG IVPB SCH ×2 (13:39→22:54)
[2018-03-20] MEDS: Insulin Regular 300 UNITS/3 ML VIAL SC PRN ×2 (13:40→16:30)
[2018-03-20] MEDS ORDERED: Lidocaine 1% PF 5 ML VIAL ONE (13:48)
[2018-03-20] MEDS ORDERED: Glycopyrrolate 0.2 MG/ML 5 ML SYRINGE ONE (13:48)
[2018-03-20] MEDS ORDERED: Rocuronium Bromide 10 MG/ML (10ML VIAL) ONE (13:48)
[2018-03-20] MEDS ORDERED: PROPOFOL 200 MG/20 ML VIAL ONE (13:48)
[2018-03-20] MEDS ORDERED: Ondansetron PF 4 MG/2 ML Vial ONE (13:48)
[2018-03-20] MEDS ORDERED: PHENYLEPHRINE-NS 100 MCG/ML 10 ML SYRINGE ONE (13:48)
[2018-03-20] MEDS ORDERED: Metoclopramide HCl 10 MG/2 ML VIAL ONE (13:48)
[2018-03-20 19:07] LABS: Anion Gap 13 mmol/L (10-20); BUN (Urea Nitrogen) 27 mg/dL (8.4-25.7); Calc. Creatinine Clearance 77 mL/min (70-130); Carbon Dioxide 22 mmol/L (22-29); Chloride 122 mmol/L (98-107); Estimated GFR-MDRD 61; Glucose 175 mg/dL (70-105); Potassium 3.7 mmol/L (3.5-5.1); Sodium 153 mmol/L (136-145)
[2018-03-20] MEDS: Atorvastatin Calcium 40 MG TAB PO SCH (20:48)
--- NOTE | 2018-03-20 21:06 | OP ---
DATE OF PROCEDURE: 03/20/2018 PREOPERATIVE DIAGNOSES: Diabetic infection, right foot with osteomyelitis, right fifth toe and metatarsal with open neuropathic ulceration, right lateral foot. PROCEDURE PERFORMED: Amputation of right fifth toe and metatarsal with wound VAC application. Note, good blood supply. No evidence of peripheral artery disease or postop bleeding. Culture and sensitivity submitted to Micro. ANESTHESIA: General. Note, Wound Care Team arrived to place a wound VAC at the end of procedure. DESCRIPTION OF PROCEDURE: The patient was taken to the operating room, where under general anesthesia, right lower extremity was prepared with Betadine and draped in routine fashion. The patient had an ulceration in the right lateral foot extending down the metatarsophalangeal joint into the metatarsal with destruction of the head of the metatarsal. An incision was made, racquet, for excision of the right fifth toe and metatarsal sparing as much skin as possible while resecting the ulceration. Incision was carried down through skin and subcutaneous tissue of the metatarsal, which was transected with a bone cutter and resected proximally with a rongeur to healthy bone. Good hemostasis was obtained with cautery. Pulsatile digital vessel bleeding noted. Connective tissue was debrided sharply. Cultures had been submitted. Wound Care Team arrived. Once the wound was irrigated, Wound Care Team placed a wound VAC. The patient tolerated the procedure well. Job ID: [id number]
[2018-03-21] MEDS: Sodium Chloride 0.45% 1,000 ML IV SCH ×2 (04:41→14:17)
[2018-03-21 05:12] LABS: Anion Gap 13 mmol/L (10-20); BUN (Urea Nitrogen) 21 mg/dL (8.4-25.7); Calc. Creatinine Clearance 107 mL/min (70-130); Calcium 8.4 mg/dL (7.8-10.44); Carbon Dioxide 21 mmol/L (22-29); Chloride 115 mmol/L (98-107); Estimated GFR-MDRD 90; Glucose 154 mg/dL (70-105); Potassium 3.1 mmol/L (3.5-5.1); Sodium 146 mmol/L (136-145)
[2018-03-21] MEDS: MEROPENEM 1 GM/50 ML 1 GM in Premix Bag 1 BAG IVPB SCH ×3 (06:06→22:17)
--- NOTE | 2018-03-21 07:04 | PDOC.FM ---
- Subjective Subjective: Patient doing better this AM. Overnight, patient non-compliant with NPO status and was drinking water. He has a swallow study scheduled for this AM. If he passes swallow study, then he can be changed to Diabetic diet. Patient states his throat is very dry, but it no longer hurts like it used to. He denies chest pain, shortness of breath, N/V, or palpitations. - Objective MAR Reviewed: Yes Vital Signs & Weight: Vital Signs (12 hours) Temp Pulse Resp BP Pulse Ox 03/21/18 04:00 99.2 F 83 18 123/60 95 03/20/18 23:50 99.5 F 80 18 143/89 H 94 L 03/20/18 19:54 99.3 F 87 20 147/72 H 92 L Weight Admit Weight 82.146 kg Weight 87.118 kg I&O: 03/20/18 03/21/18 03/22/18 06:59 06:59 06:59 Intake Total 3740 Output Total 1225 Balance 2515 Result Diagrams: 03/20/18 07:28 03/21/18 04:23 EKG Reviewed by me: Yes Radiology Reviewed by me: Yes Phys Exam - Physical Examination Constitutional: NAD Dry mucous membranes Respiratory: clear to auscultation bilateral Cardiovascular: RRR, no significant murmur Gastrointestinal: soft, non-tender, no distention, positive bowel sounds Musculoskeletal: no edema, pulses present Neurological: non-focal Psychiatric: A&O x 3 Deviation from normal: Right foot with wound vac and LEXY bandage Dx/Plan (1) DKA (diabetic ketoacidoses) Code(s): E13.10 - OTH DIABETES MELLITUS WITH KETOACIDOSIS WITHOUT COMA Status : Acute (2) Type II diabetes mellitus Status: Chronic Qualifiers: Diabetes mellitus complication status: with neurologic complications (3) Ulcer of right foot due to type 2 diabetes mellitus Code(s): E11.621 - TYPE 2 DIABETES MELLITUS WITH FOOT ULCER; L97.519 - NON-PRS CHRONIC ULCER OTH PRT RIGHT FOOT W UNSP SEVERITY Status: Acute - Plan Plan: DKA, resolved - On glipizide and janumet at home, compliant per patient, A1c 8.5 - pH 7.25, beta hydroxybutyrate 6, Anion gap 23, HCO3 14 on presentation - Weaned off insulin drip and transitioned to lantus - CCU electrolyte protocol; potassium replaced this AM - BMP in PM; monitor hypernatremic metabolic acidosis and electrolyte abnormalities - continue IVF to 1/2NS at 150; hyperchloremic metabolic acidosis improving - source likely 2/2 osteomyelitis of 5th digit on right foot Sepsis likely 2/2 right diabetic foot ulcer and osteomyelitis - Chronic right foot ulcer with overlying erythema; likely source of infection leading to DKA - Right foot xray shows osteomyelitis - Vanc and zosyn dc'd as below, merem started yesterday (03/20), await bone cx - consulted Gen Surgery and ID, appreciate recs - amputation of left 5th digit on right foot yesterday; no PVD identified - BCx NGTD Hemoptysis - belkis sanchez vs stomach ulcer - IV protonix BID, give IV phenergan - no epigastric pain Rash - developed overnight, discontinued Vanc and Zosyn - today switched to merem and cipro for double pseudomonos coverage, G+, and anaerobic coverage, await bone cx Dysphagia - productive cough on exam with recent hx of sore throat - speech consulted for swallow eval, patient has failed swallow test; recommend barium swallow - patient has speech therapy/barium swallow scheduled for this AM Type II DM - On glipizide and janumet at home; transitioning to insulin during hospitalization, will continue to titrate - continue LEXY-I and high intensity statin - started on baby ASA DM neuropathy - Continue home medications KAIN - Prerenal, improving - continue IVF to 1/2NS at 150 Dispo: Stable. Code: Full Diet: NPO until barium swallow study Dispo: Stable. Transfer to medical floor today. Patient awaiting barium swallow test per recs of speech therapy. Continue to titrate insulin.
[2018-03-21] MEDS ORDERED: Potassium Chloride 40 MEQ in Sodium Chloride 0.9% 500 ML IVPB ONE (07:15)
[2018-03-21] MEDS ORDERED: Insulin Glargine 35 UNITS in Pre-Filled Syringe 1 EACH SC SCH (07:20)
[2018-03-21] MEDS: Pantoprazole 40 MG VIAL IVP SCH ×2 (09:00→22:17)
[2018-03-21] MEDS: Pregabalin 75 MG CAP PO SCH ×3 (09:02→22:15)
[2018-03-21] MEDS: Lisinopril 10 MG TAB PO SCH (09:02)
[2018-03-21] MEDS: Polyethylene Glycol 3350 17 GM Packet PO SCH (09:02)
[2018-03-21 12:08] VITALS: BMI 26.0
--- NOTE | 2018-03-21 15:34 | RAD ---
MODIFIED BARIUM SWALLOW: 03/21/18 HISTORY: Evaluate for aspiration. Determine least restrictive diet. Dysphagia, oropharyngeal phase. Feeding di fficulties. EXPOSURE: 1.5 minutes. 1.359 Gy*cm2. FINDINGS: In the presence of speech pathologist, the patient administered thin liquid, nectar thick, pudding, a nd solid consistencies. There is premature spillage and pooling in the vallecula and piriform sinuses in all the aforementioned consistencies. There is penetration and aspiration with thin liquid consi stency. There is some aspiration and penetration of residue when administering the nectar thick consi stency. Please refer to speech pathologist report for feeding recommendations. IMPRESSION: Please refer to speech pathologist report for feeding recommendation. POS: DONOVAN
[2018-03-21] MEDS: diphenhydrAMINE 25 MG CAP PO PRN (22:14)
[2018-03-21] MEDS: Atorvastatin Calcium 40 MG TAB PO SCH (22:15)
[2018-03-22] MEDS: MEROPENEM 1 GM/50 ML 1 GM in Premix Bag 1 BAG IVPB SCH (05:35)
[2018-03-22 06:42] LABS: Anion Gap 14 mmol/L (10-20); BUN (Urea Nitrogen) 15 mg/dL (8.4-25.7); Calc. Creatinine Clearance 113 mL/min (70-130); Calcium 8.3 mg/dL (7.8-10.44); Carbon Dioxide 20 mmol/L (22-29); Chloride 113 mmol/L (98-107); Estimated GFR-MDRD Greater than 90; Glucose 167 mg/dL (70-105); Potassium 3.5 mmol/L (3.5-5.1); Sodium 143 mmol/L (136-145)
[2018-03-22] MEDS: Insulin Regular 300 UNITS/3 ML VIAL SC PRN (06:44)
[2018-03-22] MEDS: Polyethylene Glycol 3350 17 GM Packet PO SCH (08:44)
[2018-03-22] MEDS: Pregabalin 75 MG CAP PO SCH ×3 (08:44→21:08)
[2018-03-22] MEDS: Pantoprazole 40 MG VIAL IVP SCH ×2 (08:44→21:06)
[2018-03-22] MEDS: Lisinopril 10 MG TAB PO SCH (08:44)
[2018-03-22] MEDS: HumaLOG 300 UNITS/3 ML VIAL SC SCH ×3 (08:45→16:08)
[2018-03-22] MEDS: diphenhydrAMINE 25 MG CAP PO PRN (08:48)
--- NOTE | 2018-03-22 08:55 | HP ---
ADDENDUM: This is an addendum to the note of Dr. Radha Ann. Mr. davidson continues to look and feel much better. He is alert and oriented, only complaining of thirst. We are awaiting results of swallow tests, at which time, we hope we can begin to feed him. His metabolic abnormalities have vastly improved and he no longer demonstrates metabolic acidosis secondary to either DKA or hyperchloremic metabolic acidosis. He is on aggressive sliding scale for his still elevated blood glucose levels. He will need to be sent home on insulin in addition to his three oral diabetic medications. We feel he is likely ready for transfer to a regular floor bed. Job ID: [id number]
[2018-03-22] MEDS: Insulin Glargine 18 UNITS in Pre-Filled Syringe 1 EACH SC SCH (09:33)
--- NOTE | 2018-03-22 09:52 | PRG ---
DATE OF SERVICE: 03/22/2018 SUBJECTIVE: Mr. Salazar is doing well today. His right foot is granulating, looks good. Wound VAC is changed. There is no cellulitis, no signs of infection. Cultures, blood are negative. Wound cultures, Gram-positive cocci in pairs and clusters. Final results pending. ASSESSMENT AND PLAN: The patient's foot is doing well. I will see him as needed this hospitalization. The patient will be discharged home on oral antibiotics for 10 days whenever outpatient wound VAC is approved. He can follow up in [place] for his wound VAC. He can return to my office as needed. The patient should continue oral antibiotics for 10 days. The infected tissue is resected, and there is no evidence of residual infection and no evidence of residual osteomyelitis. Job ID: [id number]
--- NOTE | 2018-03-22 11:49 | PDOC.FM ---
- Subjective Subjective: Patient doing very well this AM. No significant overnight events. Patient tolerating PO, although it is still painful to swallow. He did not pass his swallow test entirely and has been on pureed diet since yesterday. He states that he feels like his stomach has shrunk and he just isn't as hungry. He does report being very thirsty. He denies any pain currently. - Objective MAR Reviewed: Yes Vital Signs & Weight: Vital Signs (12 hours) Temp Pulse Resp BP BP Pulse Ox 03/22/18 11:00 99.0 F 65 18 144/78 H 95 03/22/18 08:44 151/81 H 03/22/18 08:00 98.2 F 67 18 151/81 H 95 03/22/18 07:00 98.3 F 68 18 145/74 H 97 03/22/18 06:03 98.4 F 67 21 H 136/67 99 03/22/18 02:19 98.4 F 73 18 136/67 95 Weight Admit Weight 82.146 kg Weight 87.118 kg I&O: 03/21/18 03/22/18 03/23/18 06:59 06:59 06:59 Intake Total 3740 1500 Output Total 1225 1400 1000 Balance 2515 100 -1000 Result Diagrams: 03/20/18 07:28 03/22/18 06:07 EKG Reviewed by me: Yes Radiology Reviewed by me: Yes Phys Exam - Physical Examination Constitutional: NAD HEENT: moist MMs Neck: supple Respiratory: clear to auscultation bilateral Cardiovascular: RRR, no significant murmur Gastrointestinal: soft, non-tender, no distention, positive bowel sounds Musculoskeletal: no edema, pulses present Neurological: non-focal Psychiatric: normal affect, A&O x 3 Skin: cap refill <2 seconds Deviation from normal: Rash on back; maculopapular. Right foot in bandage with woud vac. Dx/Plan (1) DKA (diabetic ketoacidoses) Code(s): E13.10 - OTH DIABETES MELLITUS WITH KETOACIDOSIS WITHOUT COMA Status : Resolved (2) Type II diabetes mellitus Status: Chronic Qualifiers: Diabetes mellitus complication status: with neurologic complications (3) Ulcer of right foot due to type 2 diabetes mellitus Code(s): E11.621 - TYPE 2 DIABETES MELLITUS WITH FOOT ULCER; L97.519 - NON-PRS CHRONIC ULCER OTH PRT RIGHT FOOT W UNSP SEVERITY Status: Chronic (4) Osteomyelitis Code(s): M86.9 - OSTEOMYELITIS, UNSPECIFIED Status: Acute Qualifiers: Osteomyelitis location: foot - Plan Plan: 62 year old male presents with N/V DKA, resolved - On glipizide and janumet at home, compliant per patient, A1c 8.5 - pH 7.25, beta hydroxybutyrate 6, Anion gap 23, HCO3 14 on presentation - Weaned off insulin drip and transitioned to lantus; changed regimen today based on .4 units/kg divided into basal and short acting insulin - IVF's d/c'd - source likely 2/2 osteomyelitis of 5th digit on right foot Sepsis 2/2 right diabetic foot ulcer and osteomyelitis - Chronic right foot ulcer with overlying erythema; likely source of infection leading to DKA - Right foot xray shows osteomyelitis - Vanc and zosyn dc'd as below, merem started yesterday (03/20), await bone cx - consulted Gen Surgery and ID, appreciate recs - s/p amputation of left 5th digit on right foot; POD #2 - BCx NGTD - Wound culture growing out staph aureus - will d/c meropenem today and transition to PO Clindamycin for which patient will need to take for 10 days per surgery recs Hemoptysis - possible esophageal tear - IV protonix BID - no epigastric pain Rash - d/c'd vanc and zosyn under presumption rash was attributed to abx. Rash still present despite being off those antibiotics - benadryl PRN Dysphagia - productive cough on exam with recent hx of sore throat - speech consulted for swallow eval, patient has failed swallow test; patient failed barium swallow. Recommend puree diet at this time with thickened liquids - ADAT per speech therapy recs Type II DM - On glipizide and janumet at home; transitioning to insulin during hospitalization, will continue to titrate - continue LEXY-I and high intensity statin - started on baby ASA DM neuropathy - Continue home medications KAIN - improved Dispo: Stable. Code: Full Diet: puree, thickened liquids Dispo: Stable. Ready for d/c home from surgery standpoint with wound vac when CM has set up home wound vac. Still evaluating patient's ability to tolerate PO and adjusting insulin.
[2018-03-22] MEDS: Clindamycin 150 MG CAP PO SCH ×2 (14:51→21:06)
--- NOTE | 2018-03-22 18:43 | PRG ---
DATE OF SERVICE: 03/22/2018 SUBJECTIVE: Mr. Salazar has been transferred to the floor. He is feeling better. Denies any headaches. No visual symptoms, sore throat, odynophagia, or dysphagia. He had amputation of the first metatarsal. He has not had any diarrhea. OBJECTIVE: VITAL SIGNS: Normal, maybe T-max is 99, blood pressure 140/70, and pulse 71. GENERAL: Awake, alert, and oriented. LUNGS: Clear. HEART: S1 and S2. Regular rate. ABDOMEN: Soft, not distended. EXTREMITIES: Right foot with dressing and negative pressure dressing is applied. LABORATORY DATA: White cell count is at 13, hemoglobin 12, platelets 263. Sodium 143 and creatinine 0.86. We have a culture, now Staph aureus with pending susceptibilities. ASSESSMENT AND DISCUSSION: Type 2 diabetes, now type 1 of diabetic ketoacidosis; destruction of right fifth metatarsal, status post ray amputation with Staphylococcus aureus retrieved from the culture. We will await for the susceptibility results and then define this discharge antimicrobial regimen. Treat for about approximately 2 weeks. Follow up wound care progress. Job ID: [id number]
--- NOTE | 2018-03-22 19:10 | PRG ---
DATE OF SERVICE: 03/22/2018 Mr. Salazar is doing fine this morning. He is in good spirits. No new complaints. His blood glucose levels were much improved. He will be transitioned to oral antibiotics for his previous osteomyelitis with followed by a ray resection. Likely, home in a day or 2 with instructions on his insulin. Job ID: [id number]
[2018-03-22] MEDS: Atorvastatin Calcium 40 MG TAB PO SCH (21:06)
--- NOTE | 2018-03-22 23:20 | PDOC.FM ---
- Subjective Subjective: Patient doing extremely well this AM. He states he feels well. His sore throat has improved, although he is still having some difficulties swallowing. He was told by speech therapy that this shouldn't hold him up from discharge, but that he would have to take it slow in the progression of his diet. He is extremely grateful for the care we have provided. - Objective MAR Reviewed: Yes Vital Signs & Weight: Vital Signs (12 hours) Temp Pulse Resp BP Pulse Ox 03/22/18 20:00 98.2 F 68 18 128/78 96 03/22/18 16:00 98.5 F 71 18 143/73 H 95 Weight Admit Weight 82.146 kg Weight 87.118 kg I&O: 03/21/18 03/22/18 03/23/18 06:59 06:59 06:59 Intake Total 3740 1500 1920 Output Total 1225 1400 1000 Balance 2515 100 920 Result Diagrams: 03/20/18 07:28 03/22/18 06:07 EKG Reviewed by me: Yes Radiology Reviewed by me: Yes Phys Exam - Physical Examination Constitutional: NAD HEENT: moist MMs Neck: supple Respiratory: clear to auscultation bilateral Cardiovascular: RRR, no significant murmur Gastrointestinal: soft, non-tender, no distention, positive bowel sounds Musculoskeletal: no edema, pulses present Neurological: non-focal Psychiatric: normal affect, A&O x 3 Skin: cap refill <2 seconds Deviation from normal: Right foot wrapped and with wound vac in place Dx/Plan (1) DKA (diabetic ketoacidoses) Code(s): E13.10 - OTH DIABETES MELLITUS WITH KETOACIDOSIS WITHOUT COMA Status : Resolved (2) Type II diabetes mellitus Status: Chronic Qualifiers: Diabetes mellitus complication status: with neurologic complications (3) Ulcer of right foot due to type 2 diabetes mellitus Code(s): E11.621 - TYPE 2 DIABETES MELLITUS WITH FOOT ULCER; L97.519 - NON-PRS CHRONIC ULCER OTH PRT RIGHT FOOT W UNSP SEVERITY Status: Chronic (4) Osteomyelitis Code(s): M86.9 - OSTEOMYELITIS, UNSPECIFIED Status: Acute Qualifiers: Osteomyelitis location: foot - Plan Plan: 62 year old male presents with N/V DKA, resolved - transitioned to SC insulin; 0.4 units/kg (17 units lantus and 6 units with each meal) - source likely 2/2 osteomyelitis of 5th digit on right foot Sepsis 2/2 right diabetic foot ulcer and osteomyelitis - Chronic right foot ulcer with overlying erythema; likely source of infection leading to DKA - consulted Gen Surgery and ID, appreciate recs - s/p amputation of left 5th digit on right foot; POD #3 - BCx NGTD - Wound culture growing out staph aureus; sensitivities resulted, will initiate treatment with Doxycycline for 14 days Hemoptysis x1, resolved - transition to PO protonix Rash - d/c'd vanc and zosyn under presumption rash was attributed to abx. Rash still present despite being off those antibiotics - benadryl PRN Dysphagia - productive cough on exam with recent hx of sore throat - speech consulted for swallow eval, patient has failed swallow test; patient failed barium swallow. Recommend puree diet at this time with thickened liquids - ADAT per speech therapy recs Type II DM - On glipizide and janumet at home; transitioning to insulin during hospitalization, will continue to titrate - continue LEXY-I and high intensity statin - started on baby ASA DM neuropathy - Continue home medications KAIN - improved Dispo: Stable. Code: Full Diet: puree, thickened liquids Dispo: Stable. Ready for d/c home from surgery standpoint with wound vac. Still evaluating patient's ability to tolerate PO.
[2018-03-23] MEDS: Clindamycin 150 MG CAP PO SCH (02:35)
[2018-03-23 07:54] LABS: #Eosinphils 0.3 thou/uL (0.0-0.7); #Lymphocytes 2.7 thou/uL (1.20-3.40); #Monocytes 1.2 thou/uL (0.11-0.59); #Neutrophils 7.8 thou/uL (1.40-6.50); %Basophils 0.3 % (0.0-1.0); %Eosinophils 2.8 % (0.0-10.0); %Lymphocytes 22.3 % (21.0-51.0); %Monocytes 10.1 % (0.0-10.0); %Neutrophils 64.6 % (42.0-75.0); Hemoglobin 12.9 g/dL (14.0-18.0); Mean Corpuscular HGB CONC 32.5 g/dL (32.0-36.0); Mean Corpuscular Hemoglobin 28.4 pg (27.0-31.0); Mean Corpuscular Volume 87.5 fL (78.0-98.0); Mean Platelet Volume 7.5 fL (7.4-10.4); Platelet Count 329 thou/uL (130-400); RBC Distribution Width 12.2 % (11.5-14.5); Red Blood Cell (RBC) Count 4.56 mill/uL (4.70-6.10); White Blood Cell (WBC) Count 12.1 thou/uL (4.8-10.8)
[2018-03-23 08:10] LABS: Anion Gap 17 mmol/L (10-20); BUN (Urea Nitrogen) 11 mg/dL (8.4-25.7); Calc. Creatinine Clearance 115 mL/min (70-130); Calcium 8.6 mg/dL (7.8-10.44); Carbon Dioxide 21 mmol/L (22-29); Chloride 107 mmol/L (98-107); Estimated GFR-MDRD Greater than 90; Glucose 170 mg/dL (70-105); Potassium 3.6 mmol/L (3.5-5.1); Sodium 141 mmol/L (136-145)
[2018-03-23] MEDS ORDERED: Sulfameth/Trimethoprim DS 800-160mg TAB PO SCH (09:00)
[2018-03-23] MEDS: HumaLOG 300 UNITS/3 ML VIAL SC SCH ×2 (09:00→12:32)
[2018-03-23] MEDS ORDERED: Doxycycline 100 MG CAP PO SCH (09:00)
[2018-03-23] MEDS: Insulin Glargine 18 UNITS in Pre-Filled Syringe 1 EACH SC SCH (09:00)
[2018-03-23] MEDS: Pregabalin 75 MG CAP PO SCH ×2 (09:05→14:31)
[2018-03-23] MEDS: Lisinopril 10 MG TAB PO SCH (09:06)
[2018-03-23] MEDS: Pantoprazole 40 MG VIAL IVP SCH (09:06)
[2018-03-23] MEDS: Polyethylene Glycol 3350 17 GM Packet PO SCH (09:07)
--- NOTE | 2018-03-23 10:14 | PRG ---
DATE OF SERVICE: 03/23/2018 SUBJECTIVE: Mr. davidson is in excellent spirits this morning. His blood glucose levels were in the 120 range. He looks and feels much better. He will be placed on two weeks of doxycycline for his foot infection, but is otherwise ready for discharge today. Job ID: [id number]
[2018-03-23 14:34] VITALS: BP 142/77; TEMP 97.6
--- NOTE | 2018-03-27 15:33 | DIS ---
DATE OF ADMISSION: 03/17/2018 DATE OF DISCHARGE: 03/23/2018 ADMITTING ATTENDING: Dr. Yoli Guerrero. DISCHARGE ATTENDING: Dr. Ricardo Cano. RESIDENT: Dr. Radha Ann. PROCEDURES: 1. Foot x-ray showed evidence of osteomyelitis involving distal 5th metatarsal with destruction of metatarsal head, metatarsophalangeal joint, and base of proximal phalanx with associated soft tissue swelling and plantar ulcer. There is bone demineralization of the middle and distal phalanges of the 5th toe. There is also arthrosis and degenerative changes noted, particularly in the first metatarsal joint. 2. Chest x-ray, no active cardiopulmonary abnormalities were demonstrated. 3. Amputation of right 5th toe and metatarsal with wound VAC application. 4. Speech modified barium swallow demonstrated premature spillage and pooling in the vallecula and pyriform sinuses in all consistencies to include thin liquids, nectar thick, pudding, and solid. There is some aspiration and penetration of residue when administering nectar thick consistency. CONSULTATIONS: 1. Case Management. 2. General Surgery, Dr. Tom Major. 3. Infectious Disease, Dr. Jass Bah. 4. Pulmonology, Dr.Anup Bray. 5. Speech therapy. 6. Walking program. PRIMARY DIAGNOSES: 1. Diabetic ketoacidosis secondary to right diabetic foot ulcer and underlying osteomyelitis. 2. Dysphagia, likely secondary to recent episodes of emesis. 3. Type 2 diabetes mellitus. 4. Diabetic neuropathy. 5. Acute kidney injury. DISCHARGE MEDICATIONS: 1. Lisinopril 10 mg p.o. daily. 2. Pregabalin 150 mg p.o. t.i.d. 3. Nucynta ER 100 mg p.o. daily. 4. Nucynta 50 mg p.o. t.i.d. 5. Atorvastatin calcium 40 mg p.o. at bedtime. 6. Doxycycline 100 mg p.o. b.i.d. for 14 days. 7. Humalog 6 units subcu t.i.d. 8. Insulin glargine 20 units subcu q.a.m. HISTORY OF PRESENT ILLNESS/HOSPITAL COURSE: This is a 62-year-old gentleman with known history of type 2 diabetes on oral medications that presented to an outside emergency department with a 3-day history of nonbloody, nonbilious emesis. The reported that he had been vomiting nearly every hour since that time. Of note, the patient has been following with wound care, Dr. Sia Hall for right foot ulcer. He last saw her when the emesis first started and was started on Bactrim at that time for presumed infection of the ulcer. Since he has been unable to tolerate anything p.o., he has not been able to take the antibiotics or any of his other medications. The patient does endorse a significantly sore throat since the emesis has started. He denies any chest pain, cough, congestion, shortness of breath, or swelling. Zofran was also prescribed by his wound care physician and this did not seem to help with his current symptoms. Of note, the patient has never had any prior hospitalizations for diabetic ketoacidosis and he has been fairly well controlled on his home regimen up until this point. The patient was started on insulin drip and given 4 L of normal saline in the outside emergency department. The patient did very well during the course of his hospital stay. A right foot x-ray was performed to evaluate the right foot ulcer as a potential cause of the patient's DKA. The right foot x-ray did show changes concerning for osteomyelitis. Thus, General Surgery was consulted and the patient did undergo an amputation of that right 5th digit. The patient was started on antibiotics, vanc and Zosyn. On presentation, presuming that this was the inciting factor. However, the patient did develop a rash on his back that appeared maculopapular per report. Thus, the vancomycin was discontinued. The patient was transitioned from vanc and Zosyn to meropenem and ciprofloxacin. The rash initially improved and then worsened again. It is very unlikely that this rash is secondary to a reaction from the vanc and the Zosyn, and it may be related more to contact dermatitis. Dr. Bah was on the case and agreed with meropenem choice. However, he did discontinue ciprofloxacin as there is no need for double coverage of Pseudomonas at this time. Recommendations were to continue p.o. antibiotics with sensitivities as indicated by the wound culture for a period of 14 days post discharge. The patient did drastically improve clinically during the course of his hospital stay. He was tolerating p.o., although he was having difficulty swallowing, did not pass his speech therapy and barium swallow test. All the risks associated with eating were discussed with the patient. He opted to still attempt certain liquids and foods. He did state that the soreness in his throat was improving and he felt like he was getting better from that standpoint. The patient was transitioned to insulin upon coming off the insulin drip. Of note, the patient was transitioned to a long-acting and short-acting regimen, which included 20 units of Lantus and 6 units of Humalog t.i.d. with meals. The patient seemed to tolerate this regimen fine. However, it was discussed with the patient that due to his current eating habits, his requirement for insulin may change and he needs to monitor his glucose every morning and with each meal as best as possible to determine his insulin requirement going forward. The patient was advised to keep a log of these blood sugars and take them to his primary care physician for evaluation and help with titration of insulin. Of note, initial blood work did show pH 7.25 with beta hydroxybutyrate of 6, anion gap of 23, and a bicarb of 14. This is when patient was noted to be in DKA and transferred to our facility for further management. The source of DKA was presumed to be secondary to osteomyelitis of the 5th digit on the right. After amputation of that digit, the patient improved drastically. He was continued on insulin until he would need to continue his insulin as an outpatient to avoid recurrence of DKA. The patient seemed to fully understand and was agreeable to receiving his insulin injections. The nurse did show the patient and his how to use the insulin, so that they would be competent upon discharge from the hospital. Family is very grateful for the care that they received during this hospitalization and they felt safe and comfortable going home despite the fact that the patient was not back to a full diet prior to discharge. The patient does have a wound VAC set up as an outpatient with his current wound care therapy in [place]. Of note, the patient's medications were changed to reflect standard of care for treatment of diabetes to include LEXY inhibitor, high-intensity statin, and aspirin. DISPOSITION: Stable. DISCHARGE INSTRUCTIONS: 1. Location: Home. 2. Activity: Ambulate often. 3. Diet: Diabetic diet. 4. Discharge to home with followup in 7 days of discharge from hospital with PCP. Job ID: [id number]
--- NOTE | 2018-03-28 08:33 | PQF ---
OCTAVIANO MORALES KATHERINE MD *ksenia [id number] [facility]- [id number] CLINICAL DOCUMENTATION CLARIFICATION FORM: POST DISCHARGE DATE: 03/28/2018 ATTN: Dr. Guerrero Please exercise your independent, professional judgment in responding to the clarification form. Clinical indicators are provided on the bottom of this form for your review Please check appropriate box(s) to clarify if the following diagnosis has been ruled in or ruled out: Sepsis [ ] Ruled in diagnosis [ ] Continue to treat [ ] Resolved [ ] Ruled out diagnosis [ ] Cannot rule out diagnosis [ ] Other diagnosis (please specify) [ ] Unable to determine In addition, please specify: Present on Admission (POA): [ ] Yes [ ] No [ ] Unable to determine For continuity of documentation, please document condition throughout progress notes and discharge summary. Thank You. CLINICAL INDICATORS - SIGNS / SYMPTOMS / LABS Per Family Medicine Progress Notes and H&P: Sepsis 2/2 right diabetic foot ulcer and osteomyelitis. Chronic right foot ulcer with overlying erythema; likely source of infection leading to DKA. Wound cultures growing out staph aureus. RISK FACTORS Right diabetic foot ulcer and osteomyelitis. TREATMENTS (per Family Medicine Progress Notes) IV Vancomycin/Zosyn. Change to Merem 03/20. (This form is maintained as a part of the permanent medical record) 2014 [employer] All Rights Reserved [email or web address] [phone] [email or web address]
== END 2018-03-23 15:14 | disposition home or self-care (01) | DRG 617 ==
LOC: ERS 16:08 → IMCU/EMU 16:54 → T4-B 03-21 15:46
PROVIDERS: ADMIT Family Medicine; ATTEND Family Medicine
PROC: 0Y6X0Z0 Detachment at Right 5th Toe, Complete, Open Approach (ICD-10-PCS; principal; 2018-03-20)
DX: E11.10 Type 2 diabetes mellitus with ketoacidosis without coma (principal); M86.171 Other acute osteomyelitis, right ankle and foot; R04.2 Hemoptysis; N17.9 Acute kidney failure, unspecified; E11.621 Type 2 diabetes mellitus with foot ulcer; L97.514 Non-pressure chronic ulcer of other part of right foot with necrosis of bone; E11.69 Type 2 diabetes mellitus with other specified complication; E11.42 Type 2 diabetes mellitus with diabetic polyneuropathy; R13.10 Dysphagia, unspecified; L25.9 Unspecified contact dermatitis, unspecified cause; B95.61 Methicillin susceptible Staphylococcus aureus infection as the cause of diseases classified elsewhere; Z87.891 Personal history of nicotine dependence; Z79.84 Long term (current) use of oral hypoglycemic drugs; Z79.899 Other long term (current) drug therapy
CPT/HCPCS: 36415; 36416; 71046; 74230; 80048; 80061; 80202; 81003; 81015; 83036; 83735; 84100; 84145; 85025; 85610; 85652; 85730; 86140; 86850; 86900; 86901; 87040; 87070; 87076; 87077; 87086; 87186; 87205; 87804; 88305; 88311; 90471; 90686; 90732; 96361; 96374; C9113; G0008; G0009; J0131; J0744; J1170; J1200; J1815; J1825; J2001; J2185; J2250; J2405; J2543; J2704; J2765; J3010; J3370; J3480; J7050; Q0162; Q0163